=== PATIENT | female | born 1985 | race African-American/Black ===

== ENCOUNTER 2016-08-23 19:13 | Emergency (ER) | payer OTHER ==
--- NOTE | ~2016-08-23 | CR127 ---
[facility] A Service of [facility] / [facility] RADIOLOGY TEXT RESULTS PATIENT: ARI FELICIANO LOCATION: CFTX : 81 UNIT #: [id number] AGE: [address]: ORLANDO ROWLAND APRN SEX: F ORDER DR: [id number] [facility] [address] [place], [place] [address] [id number] MR#: [id number] Acc #: [id number] NAME: ARI FELICIANO : 1985 SEX: F STUDY DATE/TIME: 08/23/2016 19:54 UNIT: [facility] ROOM: STUDY DESCRIPTION: CR Foot Complete Min 3 View Rt Attending Physician: Orlando Rowland Aprn Ordering Physician: Orlando Rowland Aprn Primary Care Physician: Charlie Vazquez M.D. MEDICAL IMAGING REPORT This report is preliminary unless electronic signature is present EXAM Right foot, 08/23. INDICATION Foot pain and swelling for one year. Knot on the top of the foot. Big toe swelling. FINDINGS The tarsal, metatarsal, and phalangeal elements are all anatomically normal in position and alignment. There are no articular defects. No fractures or radiopaque foreign bodies in the soft tissues are apparent. IMPRESSION Normal foot. Dictated by... Lasha Jarquin Jr., M.D. THIS IS AN ELECTRONICALLY VERIFIED REPORT aLsha Jarquin Jr., M.D. at 08/25/2016 7:36 AM RADHA/rosalia TD: 08/24/2016 06:42 JOB #: [id number] MEDICAL IMAGING REPORT Page 1 of 1 COPY
[~2016-08-23 19:13] MED LIST: BACTRIM DS TABL1 TA1 PO; CIPRO250 MG PO; FLEXERIL10 M1 PO; MOTRIN100 M1 PO; MOTRIN100 MG PO; NO MEDICATIONS; ORUDIS75 M1 PO; PEN-VEE K PO; PREDNISONE PO; PYRIDIUM PO; ULTRAM PO; VISCOUS XYLOCAINE PO
== END 2016-08-23 20:38 | disposition home or self-care (01) ==
LOC: CED 19:13 → CFTX 19:13
DX: L84 Corns and callosities (principal); B07.0 Plantar wart; F17.210 Nicotine dependence, cigarettes, uncomplicated
CPT/HCPCS: 73630; 96372; 99283; J1885

== ENCOUNTER 2016-10-22 13:09 | Emergency (ER) | payer OTHER ==
[~2016-10-22] VITALS: Ht 160 cm; Wt 50.8 kg
== END 2016-10-22 15:00 | disposition home or self-care (01) ==
LOC: CED 13:09 → CFTX 13:09
DX: L98.8 Other specified disorders of the skin and subcutaneous tissue (principal); F17.210 Nicotine dependence, cigarettes, uncomplicated
CPT/HCPCS: 99283